=== PATIENT | male | born 1970 | race Caucasian/White ===

== ENCOUNTER → 2023-07-22 | Outpatient (CLI) | payer OTHER ==
[2023-07-22 09:17] LABS: Basophils # (auto) 0.1 10 ^3/uL (0-0.2); Basophils % (auto) 1.1 % (0.0-2.0); Eosinophils # (auto) 0.4 10 ^3/uL (0-0.8); Eosinophils % (auto) 4.6 % (0.0-7.0); Hematocrit 46.1 % (41.0-53.0); Hemoglobin 15.7 g/dL (13.5-17.5); Lymphocytes # (auto) 1.6 10 ^3/uL (0.4-5.4); Lymphocytes % (auto) 20.2 % (10.0-50.0); Mean Corpuscular Hemoglobin 31.3 pg (28.0-32.0); Mean Corpuscular Hgb Conc. 34.1 g/dL (32.0-36.0); Mean Corpuscular Volume 91.9 fL (80.0-100.0); Monocytes # (auto) 0.6 10 ^3/uL (0-1.3); Monocytes % (auto) 7.8 % (0.0-12.0); Neutrophils # (auto) 5.2 10 ^3/uL (1.6-8.6); Neutrophils % (auto) 66.3 % (37.0-80.0); Nucleated Red Blood Cells % 0.1 %; Red Blood Cells 5.02 10^6/uL (4.5-5.90); Red Cell Distribution Width 14.7 % (11.8-14.3); White Blood Cell 7.8 10^3/uL (4.4-10.8)
[2023-07-22 09:40] LABS: Alanine Aminotransferase 16 U/L (7-40); Albumin 4.4 g/dL (3.2-4.8); Alkaline Phosphatase 69 U/L (46-116); Anion Gap 7 (5-15); Aspartate Aminotransferase 11 U/L (13-40); BUN/Creatinine Ratio 9.1 (10.0-20.0); Bilirubin, Total 0.8 mg/dL (0.2-1.0); Blood Urea Nitrogen 8 mg/dL (9-23); Calcium 9.3 mg/dL (8.5-10.1); Carbon Dioxide 23 mmol/L (20-30); Chloride 108 mmol/L (98-107); Cholesterol 200 mg/dL (< 200); Glucose 121 mg/dL (74-106); HDL Cholesterol 37 mg/dL (40-59); LDL Cholesterol 139 mg/dL (< 100); Potassium 4.1 mmol/L (3.5-5.1); Sodium 138 mmol/L (136-145); Total Protein 6.7 g/dL (5.7-8.2); Triglycerides 183 mg/dL (< 150)
[2023-07-22 10:37] LABS: Prostate Specific Antigen 0.97 ng/mL (0.0-4.0)
[2023-07-22 10:42] LABS: Free T4 (Free Thyroxine) 0.9 ng/dL (0.89-1.76)
== END | disposition home or self-care (01) ==
LOC: LAB 08:48
PROVIDERS: ATTEND Nurse Practitioner Family
DX: K58.0 Irritable bowel syndrome with diarrhea (principal); R73.03 Prediabetes; F41.9 Anxiety disorder, unspecified; F17.200 Nicotine dependence, unspecified, uncomplicated
CPT/HCPCS: 36415; 80053; 80061; 83036; 84153; 84439; 84443; 85025

== ENCOUNTER 2024-02-28 19:48 | Emergency (ER) | payer OTHER, MEDICAID ==
[~2024-02-28] VITALS: Ht 182.9 cm; Wt 95.0 kg
[2024-02-28 19:48] VITALS: BP 128/75; RESP 20; O2SAT 96
[2024-02-28 20:06] VITALS: PULSE 80
[2024-02-28 20:29] LABS: Basophils # (auto) 0.1 10 ^3/uL (0-0.2); Eosinophils # (auto) 0.3 10 ^3/uL (0-0.8); Eosinophils % (auto) 2.5 % (0.0-7.0); Hematocrit 47.8 % (41.0-53.0); Hemoglobin 16.1 g/dL (13.5-17.5); Lymphocytes % (auto) 16.7 % (10.0-50.0); Mean Corpuscular Hemoglobin 30.7 pg (28.0-32.0); Mean Corpuscular Hgb Conc. 33.6 g/dL (32.0-36.0); Mean Corpuscular Volume 91.5 fL (80.0-100.0); Monocytes # (auto) 0.6 10 ^3/uL (0-1.3); Monocytes % (auto) 4.7 % (0.0-12.0); Neutrophils # (auto) 9.1 10 ^3/uL (1.6-8.6); Neutrophils % (auto) 75.1 % (37.0-80.0); Nucleated Red Blood Cells % 0.1 %; Red Blood Cells 5.23 10^6/uL (4.5-5.90); Red Cell Distribution Width 13.9 % (11.8-14.3); White Blood Cell 12.2 10^3/uL (4.4-10.8)
[2024-02-28 20:42] LABS: Chloride 112 mmol/L (98-107); Potassium 4.3 mmol/L (3.5-5.1); Sodium 140 mmol/L (136-145)
[2024-02-28 20:43] LABS: Anion Gap 3 (5-15); Carbon Dioxide 25 mmol/L (20-30)
[2024-02-28 20:48] LABS: Glucose 117 mg/dL (74-106)
[2024-02-28 20:58] LABS: BUN/Creatinine Ratio 10.6 (10.0-20.0); Blood Urea Nitrogen 9 mg/dL (9-23)
== END 2024-02-29 01:36 | disposition home or self-care (01) ==
LOC: ER 19:48
DX: R00.2 Palpitations (principal); R06.02 Shortness of breath; R07.89 Other chest pain; R42 Dizziness and giddiness
CPT/HCPCS: 36415; 71045; 80048; 84484; 85025; 93005

== ENCOUNTER 2024-03-03 18:44 | Inpatient (IN) | payer OTHER, MEDICAID ==
[~2024-03-03] VITALS: Ht 182.9 cm; Wt 95.1 kg
[2024-03-03 19:07] LABS: Basophils # (auto) 0.1 10 ^3/uL (0-0.2); Eosinophils # (auto) 0.3 10 ^3/uL (0-0.8); Eosinophils % (auto) 2.6 % (0.0-7.0); Hematocrit 47.2 % (41.0-53.0); Hemoglobin 16.2 g/dL (13.5-17.5); Lymphocytes # (auto) 2.1 10 ^3/uL (0.4-5.4); Mean Corpuscular Hemoglobin 31.1 pg (28.0-32.0); Mean Corpuscular Hgb Conc. 34.4 g/dL (32.0-36.0); Mean Corpuscular Volume 90.5 fL (80.0-100.0); Monocytes # (auto) 0.6 10 ^3/uL (0-1.3); Neutrophils # (auto) 7.7 10 ^3/uL (1.6-8.6); Neutrophils % (auto) 71.4 % (37.0-80.0); Nucleated Red Blood Cells % 0.2 %; Red Blood Cells 5.22 10^6/uL (4.5-5.90); Red Cell Distribution Width 13.7 % (11.8-14.3); White Blood Cell 10.8 10^3/uL (4.4-10.8)
[2024-03-03 19:22] LABS: Alanine Aminotransferase 23 U/L (7-40); Albumin 4.5 g/dL (3.2-4.8); Alkaline Phosphatase 83 U/L (46-116); Anion Gap 7 (5-15); Aspartate Aminotransferase 9 U/L (13-40); BUN/Creatinine Ratio 10.3 (10.0-20.0); Bilirubin, Total 0.7 mg/dL (0.2-1.0); Blood Urea Nitrogen 9 mg/dL (9-23); Calcium 10.1 mg/dL (8.7-10.4); Carbon Dioxide 21 mmol/L (20-30); Chloride 111 mmol/L (98-107); Glucose 112 mg/dL (74-106); INR 1.05 (0.9-1.15); Magnesium 1.9 mg/dL (1.6-2.6); Partial Thromboplastin Time 27.6 SEC (24.5-34.5); Potassium 3.7 mmol/L (3.5-5.1); Prothrombin Time 11.1 sec (9.3-11.8); Sodium 139 mmol/L (136-145); Total Protein 7.2 g/dL (5.7-8.2)
[2024-03-03 19:27] LABS: Urine Bacteria None Seen /hpf (None Seen)
[2024-03-03 20:14] LABS: Urine Blood Negative /uL (Negative); Urine Clarity Clear (Clear); Urine Color Light-Yellow (Yellow); Urine Protein, UAD Negative (Negative); Urine Specific Gravity 1.014 (1.001-1.035); Urine Urobilinogen Normal (Negative); Urine WBC 1 /hpf (0 - 3)
[2024-03-03] MEDS: ASPirin 325 MG TAB PO ONE (20:30)
[2024-03-03] MEDS ORDERED: MORPHINE SULFATE INJ 2 MG/ml SYRG IV PRN (20:30)
[2024-03-03] MEDS ORDERED: NITROGLYCERIN 0.4 MG SL TAB SL PRN (20:30)
[2024-03-03] MEDS: NITROGLYCERIN 0.4 MG SL TAB SL ONE (20:31)
[2024-03-03 20:39] LABS: Amphetamine Screen, Urine Neg (NEGATIVE); Barbiturate Scree,Urine Neg (NEGATIVE); Benzodiazephine Screen, Urine Pos (NEGATIVE); Cannabinoid Screen, Urine Neg (NEGATIVE); Cocaine Screen, Urine Neg (NEGATIVE); Opiate Scree,Urine Neg (NEGATIVE); Phencyclidine Screen, Urine Neg (NEGATIVE)
[2024-03-03 20:53] LABS: Triglycerides 164 mg/dL (< 150)
[2024-03-03 20:54] LABS: LDL Cholesterol 76 mg/dL (< 100)
[2024-03-03 20:55] LABS: Cholesterol 131 mg/dL (< 200); HDL Cholesterol 34 mg/dL (40-59)
[2024-03-03] MEDS ORDERED: MIRT1TAB38 PO (21:24)
[2024-03-03] MEDS ORDERED: PROP80TA2 PO (21:24)
[2024-03-03] MEDS ORDERED: QUET100T47 PO (21:24)
[2024-03-03] MEDS ORDERED: ATOR40TA52 PO (21:24)
[2024-03-03] MEDS: NICOTINE 7MG/24HR TOPICAL PATCH TD ONE (21:49)
[2024-03-03 22:32] LABS: Erythrocyte Sedimentation Rate 12 mm/hr (0-20)
[2024-03-03 23:19] VITALS: PULSE 88; RESP 18; O2SAT 93
[2024-03-04 01:00] VITALS: BP 134/85; PULSE 88; RESP 18; TEMP 97.5; O2SAT 93
[2024-03-04 05:00] VITALS: BP 103/58; PULSE 82; RESP 18; TEMP 98; O2SAT 95
[2024-03-04 07:28] LABS: Basophils # (auto) 0.1 10 ^3/uL (0-0.2); Basophils % (auto) 0.6 % (0.0-2.0); Eosinophils # (auto) 0.3 10 ^3/uL (0-0.8); Eosinophils % (auto) 3.3 % (0.0-7.0); Hematocrit 43.2 % (41.0-53.0); Lymphocytes # (auto) 1.8 10 ^3/uL (0.4-5.4); Lymphocytes % (auto) 20.8 % (10.0-50.0); Mean Corpuscular Hemoglobin 31.7 pg (28.0-32.0); Mean Corpuscular Hgb Conc. 34.7 g/dL (32.0-36.0); Mean Corpuscular Volume 91.4 fL (80.0-100.0); Monocytes # (auto) 0.7 10 ^3/uL (0-1.3); Monocytes % (auto) 7.5 % (0.0-12.0); Neutrophils # (auto) 5.9 10 ^3/uL (1.6-8.6); Neutrophils % (auto) 67.8 % (37.0-80.0); Nucleated Red Blood Cells % 0.1 %; Red Blood Cells 4.73 10^6/uL (4.5-5.90); Red Cell Distribution Width 13.5 % (11.8-14.3); White Blood Cell 8.8 10^3/uL (4.4-10.8)
[2024-03-04 07:38] LABS: Alanine Aminotransferase 23 U/L (7-40); Albumin 4.1 g/dL (3.2-4.8); Alkaline Phosphatase 78 U/L (46-116); Anion Gap 6 (5-15); Aspartate Aminotransferase 10 U/L (13-40); BUN/Creatinine Ratio 16.5 (10.0-20.0); Blood Urea Nitrogen 13 mg/dL (9-23); Calcium 9.3 mg/dL (8.5-10.1); Carbon Dioxide 23 mmol/L (20-30); Chloride 111 mmol/L (98-107); Glucose 96 mg/dL (74-106); Potassium 3.9 mmol/L (3.5-5.1); Sodium 140 mmol/L (136-145)
[2024-03-04 07:40] LABS: Bilirubin, Total 0.6 mg/dL (0.2-1.0)
[2024-03-04 08:00] VITALS: PULSE 78
[2024-03-04] MEDS: NICOTINE 7MG/24HR TOPICAL PATCH TD SCH (09:10)
[2024-03-04 09:21] VITALS: BP 105/58; PULSE 82; RESP 19; TEMP 98.5; O2SAT 100
[2024-03-04] MEDS ORDERED: SERT-206 PO (10:57)
[2024-03-04 13:00] VITALS: BP 113/69; PULSE 66; RESP 18; TEMP 97.9; O2SAT 95
[2024-03-04 17:00] VITALS: BP 109/73; PULSE 80; RESP 15; TEMP 98.4; O2SAT 95
[2024-03-07 09:32] LABS: Hepatitis B Surface Antigen Negative (Negative)
[2024-03-07 09:54] LABS: Hepatitis C Antibody Negative (Negative)
== END 2024-03-04 18:00 | disposition home or self-care (01) | DRG 313 ==
LOC: ER 18:47 → TELE 20:26 → TELE-CENTR 23:55
PROVIDERS: ADMIT Internal Medicine; ATTEND Emergency Medicine
DX: R07.89 Other chest pain (principal); F11.20 Opioid dependence, uncomplicated; E78.5 Hyperlipidemia, unspecified; F13.10 Sedative, hypnotic or anxiolytic abuse, uncomplicated; F15.10 Other stimulant abuse, uncomplicated; F31.9 Bipolar disorder, unspecified; F41.9 Anxiety disorder, unspecified; F90.9 Attention-deficit hyperactivity disorder, unspecified type; I10 Essential (primary) hypertension; F17.210 Nicotine dependence, cigarettes, uncomplicated; R00.0 Tachycardia, unspecified; Z90.49 Acquired absence of other specified parts of digestive tract; Z82.49 Family history of ischemic heart disease and other diseases of the circulatory system; Z82.3 Family history of stroke
CPT/HCPCS: 36415; 71045; 80053; 80061; 80307; 81001; 83036; 83735; 83880; 84443; 84484; 85025; 85379; 85610; 85652; 85730; 86803; 87340; 93005; 93306; G0378

== ENCOUNTER → 2024-04-29 | Day surgery (SDC) | payer MEDICAID, OTHER ==
[2024-04-27 10:50] LABS: Urine Bacteria None Seen /hpf (None Seen); Urine WBC None Seen /hpf (0 - 3)
[2024-04-27 10:57] LABS: Urine Blood Negative /uL (Negative); Urine Clarity Clear (Clear); Urine Color Light-Yellow (Yellow); Urine Protein, UAD Negative (Negative); Urine Urobilinogen Normal (Negative); Urine pH 6.5 (5.0-9.0)
[2024-04-27 10:58] LABS: Basophils # (auto) 0.1 10 ^3/uL (0-0.2); Basophils % (auto) 0.9 % (0.0-2.0); Eosinophils # (auto) 0.2 10 ^3/uL (0-0.8); Eosinophils % (auto) 3.2 % (0.0-7.0); Hematocrit 42.9 % (41.0-53.0); Hemoglobin 14.9 g/dL (13.5-17.5); Lymphocytes # (auto) 1.3 10 ^3/uL (0.4-5.4); Lymphocytes % (auto) 17.3 % (10.0-50.0); Mean Corpuscular Hemoglobin 31.3 pg (28.0-32.0); Mean Corpuscular Hgb Conc. 34.8 g/dL (32.0-36.0); Mean Corpuscular Volume 89.9 fL (80.0-100.0); Monocytes # (auto) 0.5 10 ^3/uL (0-1.3); Monocytes % (auto) 6.2 % (0.0-12.0); Neutrophils # (auto) 5.4 10 ^3/uL (1.6-8.6); Neutrophils % (auto) 72.4 % (37.0-80.0); Nucleated Red Blood Cells % 0.1 %; Platelet Count (auto) 255 10^3/uL (140-450); Red Blood Cells 4.77 10^6/uL (4.5-5.90); Red Cell Distribution Width 13.5 % (11.8-14.3); White Blood Cell 7.5 10^3/uL (4.4-10.8)
[2024-04-27 11:12] LABS: INR 1.03 (0.9-1.15); Prothrombin Time 10.9 sec (9.3-11.8)
[2024-04-27 11:52] LABS: Alanine Aminotransferase 25 U/L (7-40); Albumin 4.4 g/dL (3.2-4.8); Alkaline Phosphatase 92 U/L (46-116); Anion Gap 5 (5-15); Aspartate Aminotransferase 9 U/L (13-40); BUN/Creatinine Ratio 18.4 (10.0-20.0); Bilirubin, Total 0.9 mg/dL (0.2-1.0); Blood Urea Nitrogen 16 mg/dL (9-23); Calcium 9.7 mg/dL (8.7-10.4); Carbon Dioxide 25 mmol/L (20-30); Chloride 108 mmol/L (98-107); Glucose 149 mg/dL (74-106); Potassium 4.5 mmol/L (3.5-5.1); Sodium 138 mmol/L (136-145); Total Protein 6.9 g/dL (5.7-8.2)
[~2024-04-29] VITALS: Ht 182.9 cm; Wt 97.1 kg
[~2024-04-29] MED LIST: ATOR40TA52 PO; DICY10CA PO; KETAMINE 50mg/ML 10ml Vial 10 ML ONE; MIDAZOLAM HCL 2MG/2ML 2ml VIAL (1mg/ml) ONE; MIRT1TAB38 PO; ONDANSETRON HCL 4 MG/2 ML VIAL IV ONE; ONDANSETRON HCL 4 MG/2 ML VIAL ONE; PROP80TA2 PO; PROPOFOL 10 MG/ML 20 ML IV ONE; QUET300T24 PO; SERT150C PO; fentaNYL CITRATE 100 MCG/2 ML VL ONE
[2024-04-29 11:45] VITALS: RESP 12; TEMP 97.2; O2SAT 97
[2024-04-29 12:00] VITALS: BP 101/64; PULSE 70; RESP 12; O2SAT 95
== END | disposition home or self-care (01) ==
LOC: GI 08:27
PROVIDERS: ATTEND Internal Medicine Gastroenterology
DX: R19.4 Change in bowel habit (principal); D12.5 Benign neoplasm of sigmoid colon; K29.50 Unspecified chronic gastritis without bleeding; K57.30 Diverticulosis of large intestine without perforation or abscess without bleeding; K22.10 Ulcer of esophagus without bleeding; K21.9 Gastro-esophageal reflux disease without esophagitis; K31.89 Other diseases of stomach and duodenum; K44.9 Diaphragmatic hernia without obstruction or gangrene; K29.80 Duodenitis without bleeding; F90.9 Attention-deficit hyperactivity disorder, unspecified type; F41.8 Other specified anxiety disorders; Z79.899 Other long term (current) drug therapy; Z98.890 Other specified postprocedural states; Z87.891 Personal history of nicotine dependence; Z88.0 Allergy status to penicillin
CPT/HCPCS: 36415; 43239; 45385; 80053; 81001; 85025; 85610; 85730; 88305; 88312; 88342; J2250; J2405; J2704; J3010; J7030

== ENCOUNTER → 2024-06-06 | Outpatient (CLI) | payer OTHER ==
[~2024-06-06] VITALS: Ht 182.9 cm; Wt 98.9 kg
[~2024-06-06] MED LIST changes: -KETAMINE 50mg/ML 10ml Vial 10 ML ONE; -MIDAZOLAM HCL 2MG/2ML 2ml VIAL (1mg/ml) ONE; -ONDANSETRON HCL 4 MG/2 ML VIAL IV ONE; -ONDANSETRON HCL 4 MG/2 ML VIAL ONE; -PROPOFOL 10 MG/ML 20 ML IV ONE; -fentaNYL CITRATE 100 MCG/2 ML VL ONE
[2024-06-06] MEDS: ADENOSINE 83 MG in GIVE UN-DILUTED 0 ML IV STA (11:47)
--- NOTE | 2024-06-06 16:57 | DVHSR ---
APPROVED REPORT Exam: Nuclear Stress Test Indication: Chest pain Stress Tech: Kayla Orellana Ht: 6 ft 0 in Wt: 218 lbs BSA: 2.21 m2 BMI: 29.56 Medical History Medical History: Hyperlipidemia, HTN, Smoking, ADHD Allergies: PCN Stress Test Details Stress Test: Pharmacological stress testing performed using 83 mg of Adenosine Reason for pharmacologic stress test: CHEST PAIN. HR Resting HR: 81 bpmMax Heart Rate (APMHR): 164.952094 bpm Max HR Achieved: 114 bpmTarget HR (85% APMHR): 139.940157 bpm % of APMHR: 69.51 Recovery HR: 87 bpm BP Resting BP: 123/69 mmHg Recovery BP: 133/67 mmHg ECG Resting ECG: Sinus Rhythm Clinical Reason for Termination: Completed protocol Nurse Comments Outpatient received from Nuclear Medicine. Patient is A&O x4 and on room air, for VS please see stre ss test assessment documentation. 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 See cardio-neuro proced ural notes for addtional details. LFA & RFA 22g PIVS flush well. Reviewed POC, patient verbalized u nderstanding, and consents to test. Adenosine stress test performed per protocol. radiography technician administered Cardiolite. Pt. to lerated well and all vitals returned to baseline. Patient transferred back to Nuclear Medicine with tech in stable condition. Stress ECG Conclusion Resting ECG shows normal sinus rhythm. At peak stress level no dynamic EKG changes was noted to sugg est ischemia. Resting images shows near homogeneous uptake of radioactive tracer throughout the myocardium with the inferior basal segment defect likely due to gastrointestinal uptake artifact. Stress images shows near homogeneous uptake of radioactive tracer partial correction of the inferior wall defect. No significant ischemia was noted. Well-preserved left ventricular systolic function at 68%. Impression: Negative stress test for ischemia, low risk study NM EXAM: Myocardial Perfusion REST/STRESS Imaging Protocol: Rest Tc-99m/Stress Tc-99m 1 day Resting Data Rest SPECT myocardial perfusion imaging was performed in supine position 45 minutes following the int ravenous injection of 10.5 mCi of Tc-99m Sestamibi. Time of rest injection: 1045 Time of rest imagin Administration Route: IV Administration Site: Left Hand Pharmacologic Stress Pharmacologic stress test was performed by injecting Adenosine mg IV push followed by the intravenou s injection of 31.3 mCi of Tc-99m Sestamibi. Time of stress injection: 1145 Time of stress imagin Administration Route: IV Administration Site: Left Hand Gated Stress SPECT was performed 45 minutes after stress injection. The images were gated to evaluate regional wall motion and calculate left ventricular ejection fracti on. Nuclear Conclusion ECG Findings: negative for ischemia Clinical Findings: negative for ischemia Nuclear Findings: negative for ischemia Exercise Capacity: not assessed Left Ventricular Function: normal Risk Study: low Resting ECG shows normal sinus rhythm. At peak stress level no dynamic EKG changes was noted to sugg est ischemia. Resting images shows near homogeneous uptake of radioactive tracer throughout the myocardium with the inferior basal segment defect likely due to gastrointestinal uptake artifact. Stress images shows near homogeneous uptake of radioactive tracer partial correction of the inferior wall defect. No significant ischemia was noted. Well-preserved left ventricular systolic function at 68%. Impression: Negative stress test for ischemia, low risk study
== END | disposition home or self-care (01) ==
LOC: XYW 10:29
PROVIDERS: ATTEND Student in an Organized Health Care Education/Training Program
DX: J44.9 Chronic obstructive pulmonary disease, unspecified (principal); R07.89 Other chest pain; I10 Essential (primary) hypertension; E78.5 Hyperlipidemia, unspecified; Z87.891 Personal history of nicotine dependence
CPT/HCPCS: 78452; 93017; A9500; J0153

== ENCOUNTER → 2024-12-15 | Outpatient (CLI) | payer OTHER ==
[2024-12-15 09:04] LABS: Basophils # (auto) 0.1 10 ^3/uL (0-0.2); Eosinophils # (auto) 0.3 10 ^3/uL (0-0.8); Eosinophils % (auto) 3.8 % (0.0-7.0); Hematocrit 41.9 % (41.0-53.0); Hemoglobin 14.3 g/dL (13.5-17.5); Lymphocytes # (auto) 1.5 10 ^3/uL (0.4-5.4); Lymphocytes % (auto) 18.5 % (10.0-50.0); Mean Corpuscular Hemoglobin 29.9 pg (28.0-32.0); Mean Corpuscular Hgb Conc. 34.2 g/dL (32.0-36.0); Mean Corpuscular Volume 87.5 fL (80.0-100.0); Monocytes # (auto) 0.5 10 ^3/uL (0-1.3); Monocytes % (auto) 6.4 % (0.0-12.0); Neutrophils # (auto) 5.6 10 ^3/uL (1.6-8.6); Neutrophils % (auto) 70.3 % (37.0-80.0); Platelet Count (auto) 292 10^3/uL (140-450); Red Blood Cells 4.79 10^6/uL (4.5-5.90); Red Cell Distribution Width 14.2 % (11.8-14.3); White Blood Cell 7.9 10^3/uL (4.4-10.8)
[2024-12-15 10:04] LABS: Alanine Aminotransferase 21 U/L (7-40); Albumin 4.6 g/dL (3.2-4.8); Alkaline Phosphatase 98 U/L (46-116); Anion Gap 8 (5-15); Blood Urea Nitrogen 16 mg/dL (9-23); Calcium 9.9 mg/dL (8.7-10.4); Carbon Dioxide 23 mmol/L (20-31); LDL Cholesterol 80 mg/dL (< 100); Potassium 4.6 mmol/L (3.5-5.1); Sodium 138 mmol/L (136-145); Total Protein 7.1 g/dL (5.7-8.2)
[2024-12-15 10:05] LABS: Bilirubin, Total 0.5 mg/dL (0.2-1.0); Cholesterol 137 mg/dL (< 200)
[2024-12-15 10:27] LABS: Aspartate Aminotransferase 12 U/L (13-40); Chloride 107 mmol/L (98-107); Glucose 171 mg/dL (74-106); HDL Cholesterol 33 mg/dL (40-59); Triglycerides 183 mg/dL (< 150)
== END | disposition home or self-care (01) ==
LOC: LAB 08:43
PROVIDERS: ATTEND Nurse Practitioner Family
DX: N40.1 Benign prostatic hyperplasia with lower urinary tract symptoms (principal); I10 Essential (primary) hypertension; N52.9 Male erectile dysfunction, unspecified; E78.5 Hyperlipidemia, unspecified; R35.1 Nocturia; F31.9 Bipolar disorder, unspecified; Z00.01 Encounter for general adult medical examination with abnormal findings
CPT/HCPCS: 36415; 80053; 80061; 84153; 84443; 85025

== ENCOUNTER → 2025-03-28 | Day surgery (SDC) | payer OTHER ==
[2025-03-24 11:41] LABS: Hematocrit 44.6 % (41.0-53.0); Hemoglobin 15.1 g/dL (13.5-17.5); Mean Corpuscular Hemoglobin 29.2 pg (28.0-32.0); Mean Corpuscular Volume 86.5 fL (80.0-100.0); Nucleated Red Blood Cells % 0.4 %
[2025-03-24 11:49] LABS: Urine Protein, UAD Negative (Negative)
[2025-03-24 11:58] LABS: INR 1.03 (0.9-1.15); Partial Thromboplastin Time 28.1 SEC (24.5-34.5); Prothrombin Time 10.9 sec (9.3-11.8)
[2025-03-24 12:12] LABS: Alanine Aminotransferase 21 U/L (7-40); Alkaline Phosphatase 94 U/L (46-116); Anion Gap 9 (5-15); Calcium 10.0 mg/dL (8.7-10.4); Carbon Dioxide 26 mmol/L (20-31); Chloride 105 mmol/L (98-107); Potassium 4.6 mmol/L (3.5-5.1); Sodium 140 mmol/L (136-145)
[2025-03-24 12:13] LABS: Albumin 4.7 g/dL (3.2-4.8); BUN/Creatinine Ratio 15.2 (10.0-20.0); Blood Urea Nitrogen 14 mg/dL (9-23); Total Protein 7.2 g/dL (5.7-8.2)
[2025-03-24 12:15] LABS: Bilirubin, Total 0.7 mg/dL (0.2-1.0); Glucose 129 mg/dL (74-106)
[~2025-03-28] VITALS: Ht 185.4 cm; Wt 97.5 kg
[~2025-03-28] MED LIST changes: -DICY10CA PO; +DICY20TA2 PO; +FAMO20TA10 PO; +HYDROmorphone HCL 2 MG/ML VL/or syr ONE; +IBUP-1455 PO; +METH-1181 PO; +MIDAZOLAM HCL 2MG/2ML 2ml VIAL (1mg/ml) IV PRN; +MIDAZOLAM HCL 2MG/2ML 2ml VIAL (1mg/ml) ONE; +MORPHINE SULFATE 4 MG/ML SYR/VIAL IV PRN; +ONDANSETRON HCL 4 MG/2 ML VIAL IV ONE; +PANT40TA2 PO; +PROPOFOL 10 MG/ML 20 ML IV ONE; +fentaNYL CITRATE 100 MCG/2 ML VL ONE; +hydrALAZINE HCL 20 MG/ML VL IV PRN
[2025-03-28] MEDS: CIPROFLOXACIN 400MG/200ML 200 ML IV ONE (12:19)
--- NOTE | 2025-03-28 13:00 | DVHNC2 ---
Procedure - OPERATIVE REPORT Pre-op. Diagnosis: BPH with Obstruction Post-op. Diagnosis: Same as pre-op diagnosis Operation: Urolift - Prostate Implant Anesthesia: General Indications: Patient suffers from obstructive voiding dysfunction. Treatment options were discussed including ongoing therapy with pharmaceutical such as alpha blocking agents (Flomax/UroXatral/Rapaflow), or Prostate shrinking agents (proscar/Avodart); In-office prostate therapies (TUMT/Indigo Laser/TUNA); or Outpatient procedures such as Green light laser photovaporization/Enucleation/TURP) as well urolift. Corresponding advantages and disadvantages were also discussed. Questions were addressed. Complication include but nt limited to infection, bleeding, damage to the surrounding structures, ejaculatory dysfunction, erectile dysfunction, need for secondary procedures were discussed. Informed consent was obtained. Details of Procedure: Patient was brought to the operating room. After administration of anesthesia, he was placed in the lithotomy position. The area of genitalia was prepped and draped in standard surgical and sterile fashion. The 20 F access sheath was introduced into the bladder under direct vision. Bladder was emptied and the Urolift device was introduced. Four implants were permanently placed at the 10 a& 2 O'clock positions near the bladder neck and apical tissue to lift the kissing lateral lobes out of the way and to create a channel in the prostatic urethra and the urethral bladder neck opening. The implants were delivered through a needle that comes out of the Urolift delivery device and into the prostate. Patient tolerated the procedure well. He was awaken and taken to RR in stable condition. All instrument counts were correct at the end of the procedure. Specimens: None Complications: None Findings: EBL: MEGAN Morales MD Mar 28, 2025 13:00
--- NOTE | 2025-03-28 13:00 | DVHDS2 ---
New Physician D'charge PN Admitting Diagnosis Admitting Diagnosis BPH Discharge Diagnosis Same Operations or Procedures UroLift prostatic implants Reason(s) For Hospitalization Surgery Treatment Plan Discharge Condition of Discharge Good Disposition Home Discharge Instructions Diet: Regular Activity: Light activity Activity comment: As tolerated Medications: Given Follow Up Care Follow Up/Referral: Two weeks follow up Discharge Statement: "Patient was advised to return to the ER or call 911 if any headaches, dizziness, shortness of breath, chest pain, abdominal pain, bleeding, fevers, or worsening of medical condition. Patient was counseled about treatment plan, medications, possible side effects, patientverbalized understanding. All questions were answered to the best of my ability. This discharge took greater then 30 minutes in planning, reviewing documentation, counseling the patient, and discussing with other team members." MEGAN WORTHINGTON MD Mar 28, 2025 13:00
[2025-03-28 13:08] VITALS: PULSE 71; RESP 12; TEMP 98.2; O2SAT 96
[2025-03-28] MEDS: HYDROmorphone HCL 2 MG/ML VL/or syr IV PRN ×2 (13:20→13:40)
[2025-03-28 14:15] VITALS: BP 111/69; PULSE 73; RESP 9; O2SAT 95
== END | disposition home or self-care (01) ==
LOC: SUR 10:38
PROVIDERS: ATTEND Urology
DX: N40.1 Benign prostatic hyperplasia with lower urinary tract symptoms (principal); N13.8 Other obstructive and reflux uropathy; K44.9 Diaphragmatic hernia without obstruction or gangrene; M19.90 Unspecified osteoarthritis, unspecified site; F90.9 Attention-deficit hyperactivity disorder, unspecified type; Z79.899 Other long term (current) drug therapy; Z90.49 Acquired absence of other specified parts of digestive tract; Z88.0 Allergy status to penicillin; Z88.8 Allergy status to other drugs, medicaments and biological substances
CPT/HCPCS: 36415; 52441; 52442; 80053; 81001; 85025; 85610; 85730; 87086; C1769; J0744; J1100; J1171; J2250; J2704; J3010; J7030; L8699

== ENCOUNTER 2025-07-18 08:26 | Outpatient (CLI) | payer OTHER ==
[~2025-07-18 08:26] MED LIST changes: -HYDROmorphone HCL 2 MG/ML VL/or syr ONE; -MIDAZOLAM HCL 2MG/2ML 2ml VIAL (1mg/ml) IV PRN; -MIDAZOLAM HCL 2MG/2ML 2ml VIAL (1mg/ml) ONE; -MORPHINE SULFATE 4 MG/ML SYR/VIAL IV PRN; -ONDANSETRON HCL 4 MG/2 ML VIAL IV ONE; -PROPOFOL 10 MG/ML 20 ML IV ONE; -fentaNYL CITRATE 100 MCG/2 ML VL ONE; -hydrALAZINE HCL 20 MG/ML VL IV PRN
[2025-07-18 09:11] LABS: Hematocrit 44.5 % (41.0-53.0); Hemoglobin 15.2 g/dL (13.5-17.5); Mean Corpuscular Hemoglobin 30.1 pg (28.0-32.0); Mean Corpuscular Volume 88.2 fL (80.0-100.0); Nucleated Red Blood Cells % 0.2 %
[2025-07-18 09:31] LABS: Alanine Aminotransferase 22 U/L (7-40); Albumin 4.4 g/dL (3.2-4.8); Alkaline Phosphatase 105 U/L (46-116); Anion Gap 8 (5-15); BUN/Creatinine Ratio 13.9 (10.0-20.0); Blood Urea Nitrogen 14 mg/dL (9-23); Calcium 9.2 mg/dL (8.7-10.4); Carbon Dioxide 24 mmol/L (20-31); Cholesterol 135 mg/dL (< 200); Potassium 4.3 mmol/L (3.5-5.1); Sodium 141 mmol/L (136-145); Total Protein 7.1 g/dL (5.7-8.2)
[2025-07-18 09:32] LABS: Bilirubin, Total 0.5 mg/dL (0.2-1.0); Chloride 109 mmol/L (98-107); Glucose 150 mg/dL (74-106); HDL Cholesterol 33 mg/dL (40-59); Triglycerides 225 mg/dL (< 150)
[2025-07-18 10:26] LABS: Microalb/Creat Ratio, Urine 3.00
== END 2025-07-18 17:00 | disposition home or self-care (01) ==
LOC: LAB 08:26
PROVIDERS: ATTEND Nurse Practitioner Family
DX: I10 Essential (primary) hypertension (principal); E11.9 Type 2 diabetes mellitus without complications; R35.1 Nocturia; Z00.01 Encounter for general adult medical examination with abnormal findings
CPT/HCPCS: 36415; 80053; 80061; 82043; 82570; 83036; 84153; 84443; 85025